=== PATIENT | male | born 1950 | race Two or more races ===

== ENCOUNTER 2019-03-16 16:27 | Emergency (ER) | payer MEDICARE, MEDICAID ==
[~2019-03-16] VITALS: Ht 154.9 cm; Wt 45.4 kg
[2019-03-16 18:13] LABS: Basophils # (auto) 0.1 uL; Basophils % (auto) 0.7 % (0.0-2.0); Eosinophils # (auto) 0.4 uL; Eosinophils % (auto) 4.8 % (0.0-7.0); Hematocrit 27.9 % (41.0-53.0); Hemoglobin 8.8 g/dL (13.5-17.5); Lymphocytes # (auto) 1.7 uL; Lymphocytes % (auto) 20.6 % (10.0-50.0); Mean Corpuscular Hemoglobin 31.2 pg (28.0-32.0); Mean Corpuscular Hgb Conc. 31.5 g/dL (32.0-36.0); Mean Corpuscular Volume 98.9 fL (80.0-100.0); Monocytes # (auto) 0.7 uL; Monocytes % (auto) 7.9 % (0.0-12.0); Neutrophils # (auto) 5.5 uL; Nucleated Red Blood Cells % 0.1 %; Platelet Count (auto) 216 10^3/uL (140-450); Red Blood Cells 2.82 10^6/uL (4.5-5.90); Red Cell Distribution Width 15.9 % (11.8-14.3); White Blood Cell 8.4 10^3/uL (4.4-10.8)
[2019-03-16 18:35] LABS: Albumin 2.8 g/dL (3.4-5.0); Magnesium 2.1 mg/dL (1.6-2.6)
[2019-03-16 18:40] LABS: BUN/Creatinine Ratio 18.8; Bilirubin, Total 0.4 mg/dL (0.2-1.0); Total Protein 6.8 g/dL (6.4-8.2)
[2019-03-16] MEDS ORDERED: SODIUM CHLORIDE 0.9% 1,000 ML IV ONE ×2 (18:45→19:45)
[2019-03-16 19:40] VITALS: BP 125/81
== END 2019-03-16 20:54 | disposition home or self-care (01) ==
LOC: EDBD 16:27 → ER 16:33
DX: M62.838 Other muscle spasm (principal); D64.9 Anemia, unspecified; G81.91 Hemiplegia, unspecified affecting right dominant side; E11.22 Type 2 diabetes mellitus with diabetic chronic kidney disease; I12.9 Hypertensive chronic kidney disease with stage 1 through stage 4 chronic kidney disease, or unspecified chronic kidney disease; N18.9 Chronic kidney disease, unspecified; Z86.73 Personal history of transient ischemic attack (TIA), and cerebral infarction without residual deficits
CPT/HCPCS: 36415; 70450; 71045; 80053; 83735; 83880; 84484; 85025; 93005; 94761